=== PATIENT | male | born 2000 | race Caucasian/White ===

== ENCOUNTER 2020-08-26 12:13 | Emergency (ER) | payer OTHER ==
--- NOTE | 2020-08-26 12:17 | NUR ---
PT CALLED FOR TRIAGE NO ANSWER.
--- NOTE | 2020-08-26 12:18 | NUR ---
PATIENT LEFT WITHOUT BEING SEEN BY DR. MIXON. NO FURTHER CARE PROVIDED FOR PATIENT.
== END 2020-08-26 12:18 | disposition left against medical advice (07) ==
LOC: MED 12:13
DX: Z53.21 Procedure and treatment not carried out due to patient leaving prior to being seen by health care provider (principal)